=== PATIENT | female | born 1980 | race Caucasian/White ===

== ENCOUNTER 2016-09-21 04:26 | Outpatient (CLI) | payer MEDICAID ==
[~2016-09-21] VITALS: Ht 156.2 cm; Wt 66.2 kg
[~2016-09-21 04:26] MED LIST: PREN1TAB49 PO; prenatal
[2016-09-21 04:58] VITALS: BP 115/61; PULSE 75; RESP 18
[2016-09-21] MEDS ORDERED: OXYCODONE/ACETAMINOPHEN (5/325) TAB PO PRN ×2 (05:00)
[2016-09-21 06:40] LABS: ADD UMIC YES; URINE BILIRUBIN (Dip) NEGATIVE (NEGATIVE); URINE BLOOD (Dip) TRACE (NEGATIVE); URINE COLOR LT. YELLOW (YELLOW); URINE GLUCOSE (Dip) NEGATIVE (NEGATIVE); URINE KETONES (Dip) NEGATIVE (NEGATIVE); URINE LEUKOCYTE ESTERASE (Dip) 2+ (NEGATIVE); URINE NITRITE (Dip) NEGATIVE (NEGATIVE); URINE TOTAL PROTEIN (Dip) NEGATIVE (NEGATIVE); URINE UROBILINOGEN (Dip) 0.2 E.U./dL (0.1-1.0)
[2016-09-21 06:51] LABS: ADD SCAN DIFF NO
--- NOTE | 2016-09-21 06:54 | RADRPT ---
PROCEDURE: ULTRASOUND LIMITED ABDOMEN CLINICAL INDICATION: 35-year-old female with abdominal pain. TECHNIQUE: Multiple sonographic of the right upper quadrant of the abdomen were obtained. The imag es were reviewed on a PACS workstation. COMPARISON: None. FINDINGS: The pancreas is partially visualized and is otherwise normal. The liver displays normal echogenicity. The liver measures 17.7 cm in length. No evidence of intrah epatic biliary ductal dilatation is seen. The portal and hepatic veins are unremarkable. The gallbladder contains mild layering sludge. There is a small echogenic focus measuring approxima tely 3 mm without definite shadowing. This may represent a sludge ball or polyp. No pericholecystic fluid is seen. The common bile duct measures 5.4 mm and is not dilated. The right kidney displays normal echogenicity. The right kidney measures 11.6 cm in maximal length. There is mild right-sided hydronephrosis. No free fluid is seen. IMPRESSION: 1. Mild sludge within the gallbladder with nonshadowing echogenic focus which may represent a sludg e ball or polyp. 2. Mild right-sided hydronephrosis. .Isai Perkins MD, MD Date Time Electronically viewed and signed by .Isai Perkins MD, MD on 09/21/2016 06:54 .M/
[2016-09-21 07:00] LABS: BASOPHILS % 0.1 % (0.0-2.0); EOSINOPHILS # 0.1 10^3/ul (0.0-0.5); EOSINOPHILS % 0.7 % (0.0-7.0); HEMATOCRIT 31.1 % (37.0-47.0); HEMOGLOBIN 10.6 g/dl (12.0-16.0); LYMPHOCYTES # 1.1 10^3/ul (0.8-2.9); LYMPHOCYTES % 13.1 % (15.0-51.0); MEAN CORPUSCULAR HEMOGLOBIN 30.4 pg (29.0-33.0); MEAN CORPUSCULAR HGB CONC 34.1 g/dl (32.0-37.0); MEAN CORPUSCULAR VOLUME 89.1 fl (82.0-101.0); MEAN PLATELET VOLUME 10.2 fl (7.4-10.4); MONOCYTE # 0.5 10^3/ul (0.3-0.9); MONOCYTES % 6.4 % (0.0-11.0); NEUTROPHIL # 6.7 10^3/ul (1.6-7.5); NEUTROPHILS % 79.3 % (39.0-77.0); PLATELET COUNT 184 10^3/UL (140-415); RED BLOOD COUNT 3.49 10^6/ul (4.20-5.40); RED CELL DISTRIBUTION WIDTH 13.2 % (11.5-14.5); WHITE BLOOD COUNT 8.5 10^3/ul (4.8-10.8)
[2016-09-21 07:11] LABS: ALBUMIN 3.1 g/dl (3.3-4.9)
[2016-09-21 07:12] LABS: POTASSIUM 3.7 mmol/L (3.5-5.1)
[2016-09-21 07:14] LABS: BILIRUBIN,INDIRECT 0.1 mg/dl (0-1.1); BILIRUBIN,TOTAL 0.1 mg/dl (0.2-1.3); CREATININE 0.63 mg/dl (0.44-1.00); TOTAL PROTEIN 6.2 g/dl (6.1-8.1)
[2016-09-21 07:15] LABS: CALCIUM 8.2 mg/dl (8.4-10.2)
[2016-09-21 07:29] LABS: BACTERIA,URINE OCCASIONAL; URINE RBCS 0-2 /HPF (0)
--- NOTE | 2016-09-21 10:50 | QN ---
Documentation Comment 35-year-old with IUP at 26 weeks and 6 days with care with Dr. Young. Presented to triage with complaint of right upper quadrant pain started since last night. She denied any nausea, vomiting, fever, diarrhea, constipation, decreased movement, leakage of fluid, vaginal bleeding, or contractions. Patient reports soreness in the right upper quadrant in touch Her antepartum course was uncomplicated Physical examination: General appearance, alert and oriented 4. Patient appears to be in mild distress Abdomen: Soft, gravid, fundal height consistent with gestational age. Mild tenderness in the right upper quadrant noted. No rebound tenderness, no guarding, no rigidity, no evidence of acute abdomen, no CVA tenderness NST: Category 1, appropriate for gestational age No contraction on the monitor Hematology - 72 Hrs Test 09/21/16 06:15 White Blood Count 8.510^3/ul (4.8-10.8) Red Blood Count 3.4910^6/ul (4.20-5.40) L Hemoglobin 10.6g/dl (12.0-16.0) L Hematocrit 31.1% (37.0-47.0) L Mean Corpuscular Volume 89.1fl (82.0-101.0) Mean Corpuscular Hemoglobin 30.4pg (29.0-33.0) Mean Corpuscular Hemoglobin Concent 34.1g/dl (32.0-37.0) Red Cell Distribution Width 13.2% (11.5-14.5) Platelet Count 27924^3/UL (140-415) Mean Platelet Volume 10.2fl (7.4-10.4) Neutrophils % 79.3% (39.0-77.0) H Lymphocytes % 13.1% (15.0-51.0) L Monocytes % 6.4% (0.0-11.0) Eosinophils % 0.7% (0.0-7.0) Basophils % 0.1% (0.0-2.0) Nucleated Red Blood Cells % 0.0/100WBC (0.0-0.0) Neutrophils # 6.710^3/ul (1.6-7.5) Lymphocytes # 1.110^3/ul (0.8-2.9) Monocytes # 0.510^3/ul (0.3-0.9) Eosinophils # 0.110^3/ul (0.0-0.5) Basophils # 0.010^3/ul (0.0-0.1) Nucleated Red Blood Cells # 0.010^3/ul (0.0-0.0) Chemistry Test 09/21/16 06:15 Sodium Level 134mmol/L (135-144) L Potassium Level 3.7mmol/L (3.5-5.1) Chloride Level 108mmol/L (97-110) Carbon Dioxide Level 22mmol/L (21-31) Anion Gap 8 (8-16) Blood Urea Nitrogen 11mg/dl (7-20) Creatinine 0.63mg/dl (0.44-1.00) Glucose Level 97mg/dl (70-220) Calcium Level 8.2mg/dl (8.4-10.2) L Total Bilirubin 0.1mg/dl (0.2-1.3) L Direct Bilirubin 0.00mg/dl (0.00-0.20) Indirect Bilirubin 0.1mg/dl (0-1.1) Aspartate Amino Transf (AST/SGOT) 16IU/L (15-46) Alanine Aminotransferase (ALT/SGPT) 15IU/L (13-69) Alkaline Phosphatase 90IU/L (42-121) Total Protein 6.2g/dl (6.1-8.1) Albumin 3.1g/dl (3.3-4.9) L Globulin 3.10g/dl (1.3-3.2) Albumin/Globulin Ratio 1.00 Amylase Level 134U/L (11-123) H Lipase 85U/L (23-300) PROCEDURE: ULTRASOUND LIMITED ABDOMEN CLINICAL INDICATION: 35-year-old female with abdominal pain. TECHNIQUE: Multiple sonographic of the right upper quadrant of the abdomen were obtained. The images were reviewed on a PACS workstation. COMPARISON: None. FINDINGS: The pancreas is partially visualized and is otherwise normal. The liver displays normal echogenicity. The liver measures 17.7 cm in length. No evidence of intrahepatic biliary ductal dilatation is seen. The portal and hepatic veins are unremarkable. The gallbladder contains mild layering sludge. There is a small echogenic focus measuring approximately 3 mm without definite shadowing. This may represent a sludge ball or polyp. No pericholecystic fluid is seen. The common bile duct measures 5.4 mm and is not dilated. The right kidney displays normal echogenicity. The right kidney measures 11.6 cm in maximal length. There is mild right-sided hydronephrosis. No free fluid is seen. IMPRESSION: 1. Mild sludge within the gallbladder with nonshadowing echogenic focus which may represent a sludge ball or polyp. 2. Mild right-sided hydronephrosis. Assessment: IUP at 26 weeks and 6 days Right upper quadrant pain, ultrasound consistent with biliary sludge. No evidence of cholecystitis or obstruction Mild right pyelectasis due to , asymptomatic Symptoms improved Labs are normal Plan: Dietary advice was given to the patient Prescription for Zofran and [place] provided as needed Advised to avoid of taking greasy meals Precaution was given to return to L&D if she has any leaking of fluid, bleeding , contraction, fever, chills, decreased movement or worsening of pain or any other concerns. Next Patient verbalized understanding. Patient was advised to have a follow-up with her primary OB in 3 days after discharge or sooner as needed any other symptoms. PAUL POSEY MD Sep 21, 2016 10:50
== END 2016-09-21 09:37 | disposition home or self-care (01) ==
LOC: OBT 04:26 → L-D 04:27 → OBT 09:37
PROVIDERS: ATTEND Obstetrics & Gynecology
DX: O26.892 Other specified pregnancy related conditions, second trimester (principal); R10.11 Right upper quadrant pain; Z3A.26 26 weeks gestation of pregnancy
CPT/HCPCS: 76705; 80053; 81001; 81003; 82150; 83690; 85025; Z7500; G0463

== ENCOUNTER 2016-12-24 08:18 | Inpatient (IN) | payer MEDICAID ==
[~2016-12-24] VITALS: Ht 152.4 cm; Wt 64.5 kg
[2016-12-24 08:37] VITALS: BP 136/79; RESP 20
[2016-12-24 08:39] VITALS: Ht 152.4 cm; Wt 64.5 kg
[2016-12-24] MEDS ORDERED: BUTORPHANOL 2 MG INJ IV PRN ×2 (09:00)
[2016-12-24] MEDS ORDERED: OXYTOCIN 30 UNITS/LR 500 ML IV SCH ×3 (09:00)
[2016-12-24] MEDS ORDERED: LIDOCAINE 1% (MPF) 30 ML INJ INJ PRN (09:00)
[2016-12-24] MEDS ORDERED: IBUPROFEN 600 MG TAB PO PRN (09:00)
[2016-12-24] MEDS ORDERED: OXYTOCIN 30 UNITS/LR 500 ML IV PRN ×2 (09:00→16:00)
[2016-12-24] MEDS ORDERED: MISOPROSTOL 200 MCG TAB PR PRN ×2 (09:00→16:00)
[2016-12-24] MEDS ORDERED: METHYLERGONOVINE 0.2 MG INJ IM PRN ×2 (09:00→16:00)
[2016-12-24] MEDS ORDERED: CARBOPROST 250 MCG INJ IM PRN ×2 (09:00→16:00)
[2016-12-24] MEDS ORDERED: LACTATED RINGER'S 1,000 ML IV PRN (09:10)
--- NOTE | 2016-12-24 09:12 | TRIAGE ---
OB Triage Datetime Report Generated by CPN: 12/24/2016 09:11 Datetime: 12/24/2016 08:50 Vaginal Exam Dilatation (cms): 3.0 Effacement (%): 100 Station: -3 Exam By: LR RN Vaginal Bleeding: None Cervix, Consistency: Moderate Cervix, Position: Anterior Presentation 'A': Cephalic Lie 'A': Longitudinal Datetime: 12/24/2016 08:42 Maternal Assessment Level of Consciousness: Fully Conscious Headache: Denies Blurred Vision: No Nausea/Vomiting: Denies RUQ Epigastric Pain: Denies Facial Edema: None Labor Evaluation Frequency: 5 Monitor Mode: External Duration (sec)2399: 90 Quality: Moderate Resting Tone Robeline: Relaxed Heart Rate FHR Baseline Rate: 135 Monitor Mode: External US FHR Baseline Changes: No Baseline Change Variability: Moderate 6-25 bpm Accelerations: 10X10 Decelerations: Early Category: Category I Pain Assessment Pain Scale: 3 Pain Presence: Intermittent Pain Type: Cramping; Contraction Pain Location: Abdomen Membrane Status: Intact Datetime: 12/24/2016 08:20 Time of Arrival: 12/24/2016 08:30 EGA: 40.2 Arrived By: Ambulatory Arrived From: Home Chief Complaint: UC'A SINCE 0700 Movement: Present Time Contractions Began: 12/24/2016 07:00 Contractions: 15 PER PT Rupture of Membranes: Denies Vaginal Bleeding: None Vaginal Discharge: Present Recent Sexual Intercouse: Denies Abdominal Trauma: Not Applicable Patient Complaints: Contractions Time Provider Notified: 12/24/2016 08:55 Provider Notified: LABORIST ESVIN Szymanski ESHAGHIAN Initial Plan: NST REACTIVE /VE Datetime: 09/21/2016 08:56 Stage of : OB Triage Datetime: 09/21/2016 08:26 Labor Evaluation Frequency: 0 Resting Tone Robeline: Relaxed Heart Rate FHR Baseline Rate: 125 Monitor Mode: External US Variability: Moderate 6-25 bpm Accelerations: 10X10 Decelerations: None Category: Category I Pain Assessment Pain Scale: 0 Pain Presence: None/Denies Pain Type: N/A Pain Goal: 3 Pain Relief Measures: Comfort Measures Datetime: 09/21/2016 07:25 Labor Evaluation Frequency: 0 Monitor Mode: External Resting Tone Robeline: Relaxed Heart Rate FHR Baseline Rate: 135 Monitor Mode: External US Variability: Moderate 6-25 bpm Accelerations: 10X10 Decelerations: None Category: Category I Pain Assessment Pain Scale: 0 Pain Presence: None/Denies Pain Type: N/A Pain Location: Abdomen Pain Goal: 3 Pain Relief Measures: Comfort Measures Datetime: 09/21/2016 07:03 Monitor Mode: External Pattern: Normal: <= 5 Contractions in 10 Minutes Resting Tone Robeline: Relaxed Heart Rate FHR Baseline Rate: 140 Monitor Mode: External US Variability: Moderate 6-25 bpm Accelerations: 10X10 Decelerations: Variable Category: Category II Datetime: 09/21/2016 06:44 Monitor Mode: External Monitor Mode: External US Datetime: 09/21/2016 06:24 Membrane Status: Intact Datetime: 09/21/2016 06:00 Monitor Mode: External Resting Tone Robeline: Relaxed Heart Rate FHR Baseline Rate: 135 Monitor Mode: External US FHR Baseline Changes: No Baseline Change Variability: Moderate 6-25 bpm Accelerations: 10X10 Datetime: 09/21/2016 05:02 Stage of : OB Triage Monitor Mode: External Pattern: Normal: <= 5 Contractions in 10 Minutes Resting Tone Robeline: Relaxed Heart Rate FHR Baseline Rate: 140 Monitor Mode: External US FHR Baseline Changes: No Baseline Change Variability: Moderate 6-25 bpm Accelerations: 10X10 Decelerations: None Category: Category I Datetime: 09/21/2016 04:52 Time of Arrival: 09/21/2016 04:20 EGA: 26.6 Arrived By: Wheelchair Arrived From: Home Chief Complaint: G%p$ w/ c/o RUQ pain since 2299 Movement: Present Contractions: Denies/Absent Rupture of Membranes: Denies Vaginal Bleeding: None Vaginal Discharge: Denies Recent Sexual Intercouse: Denies Abdominal Trauma: Not Applicable Patient Complaints: Nausea; Epigastric Pain Time Provider Notified: 09/21/2016 05:02 Provider Notified: ESHAGHIAN Initial Plan: CBC,CMP,AMYLASE,LIPASE,U/S Datetime: 09/21/2016 04:39 Maternal Assessment Level of Consciousness: Fully Conscious Headache: Denies Blurred Vision: No Respiratory Effort: Unlabored Nausea/Vomiting: Present RUQ Epigastric Pain: Denies Facial Edema: None Labor Evaluation Frequency: PLACED Monitor Mode: External Resting Tone Robeline: Relaxed Monitor Mode: External US Comments: FHR 140 Pain Assessment Pain Scale: 7 Pain Presence: Constant Pain Type: Sharp Pain Location: Abdomen
--- NOTE | 2016-12-24 09:36 | RADRPT ---
PROCEDURE: US OB. CLINICAL INDICATION: Size and dates TECHNIQUE: Multiple sonographic images of the pelvis and gravid uterus were obtained. The images were reviewed on a PACS workstation. COMPARISON: No prior studies are available for comparison. FINDINGS: There is a single viable intrauterine gestation. Cardiac activity is present with 135 beats per min jimenez. There is a vertex presentation. The placenta is anterior. There is no evidence for an abruption or placenta previa. There is a normal amount of amniotic fluid with an JULIO = 12.5 cm. Measurements were made in order to determine age. The results are as follows: BPD =9.0 cm HC =32.9 cm AC =36.8 cm FL =7.5 cm Estimated gestational age of approximately 38 weeks and 1 day based on ultrasound measurements. Clinical age: 40 weeks and 2 days. The estimated date of delivery is 01/06/2017, based on ultrasound measurements. The EFW = 3727 g, 55%, based on LMP age. RPTAT: AA IMPRESSION: Single viable intrauterine gestation of approximately 38 weeks and 1 day based on ultrasound measur ements. Smaller than clinical age by 2 weeks. .Peter Duong MD, Date Time Electronically viewed and signed by .Peter Duong MD, MD on 12/24/2016 09:36 .S/
[2016-12-24] MEDS: LACTATED RINGER'S 1,000 ML IV SCH ×2 (09:55→13:22)
[2016-12-24] MEDS ORDERED: FENTAnyl 2MCG/ML-ROPIV 0.2% 100 ML ONE (10:12)
[2016-12-24 10:13] LABS: ADD SCAN DIFF NO
[2016-12-24 10:14] LABS: BASOPHILS % 0.1 % (0.0-2.0); EOSINOPHILS % 0.5 % (0.0-7.0); HEMATOCRIT 32.9 % (37.0-47.0); HEMOGLOBIN 11.2 g/dl (12.0-16.0); LYMPHOCYTES # 1.3 10^3/ul (0.8-2.9); LYMPHOCYTES % 15.4 % (15.0-51.0); MEAN CORPUSCULAR HEMOGLOBIN 28.4 pg (29.0-33.0); MEAN CORPUSCULAR VOLUME 83.3 fl (82.0-101.0); MEAN PLATELET VOLUME 10.9 fl (7.4-10.4); MONOCYTE # 0.4 10^3/ul (0.3-0.9); MONOCYTES % 5.1 % (0.0-11.0); NEUTROPHIL # 6.4 10^3/ul (1.6-7.5); NEUTROPHILS % 78.7 % (39.0-77.0); PLATELET COUNT 195 10^3/UL (140-415); RED BLOOD COUNT 3.95 10^6/ul (4.20-5.40); RED CELL DISTRIBUTION WIDTH 13.2 % (11.5-14.5); WHITE BLOOD COUNT 8.2 10^3/ul (4.8-10.8)
--- NOTE | 2016-12-24 10:16 | HP ---
Date/Time of Note Date/Time of Note DATE: 12/24/16 TIME: 10:14 OB - History Hx of Present Free Text/Dictation 40+wks GA in labor : 5 Para: 4 Care: Good Care Obstetrical Complications: None Medical Complications: None Past Family/Social History * Past Medical, Surgical, Family and Obstetric Histories reviewed from chart. OB Admission Exam Vital Signs Vital Signs Vital Signs Date Time Temp Pulse Resp B/P Pulse Ox O2 Delivery O2 Flow Rate FiO2 12/24/16 08:37 98.3 20 136/79 Room Air Physical Exam Abdomen: WNL Extremities: Normal Cervical Dilatation: 3cm Effacement: 75% Station: -1 Membranes: Intact Heart Rate: 140's Accelerations: Accelerations Present Decelerations: No Decelerations Varibility: Moderate Contractions on Admission: < 5 Minutes Apart OB Assessment/Plan Reason for admission: induction of labor Induction Method: per Pitocin Protocol JOSE MCALLISTER M.D. Dec 24, 2016 10:16
[2016-12-24 10:33] LABS: INR 0.89; PT RATIO 0.9
[2016-12-24 10:34] LABS: PARTIAL THROMBOPLASTIN TIME 26.4 Sec (25.0-35.0)
[2016-12-24] MEDS ORDERED: LACTATED RINGER'S 1,000 ML IV* SCH (15:37)
--- NOTE | 2016-12-24 15:37 | LDN ---
Date/Time of Note Date/Time of Note DATE: 12/24/16 TIME: 15:35 Delivery Summary Weeks of Gestation 40 Placenta Delivered: Spontaneously Meconium: none Episiotomy: No Estimated blood loss: 100 Sponge & Needle done & correct: Yes All needle counts correct: Yes Any foreign bodies felt in the: No Problems: Delivery Information Sex Sex: female Apgars 1 Minute: 9 5 Minute: 9 Suctioning Nose & mouth suctioned at [place]: No Delee suction performed: No Umbilical Cord Umbilical cord with: 3 Vessels Cord presentations: no nuchal cord Cord Blood was obtained: Yes AGUSTIN GOLDBERG MD Dec 24, 2016 15:36
[2016-12-24] MEDS ORDERED: BENZOCAINE 20% 56 ML SPRAY TOP PRN (16:00)
[2016-12-24] MEDS ORDERED: DIBUCAINE 1% 30 GM OINT PR PRN (16:00)
[2016-12-24] MEDS ORDERED: ZOLPIDEM 5 MG TAB PO PRN (16:00)
[2016-12-24] MEDS ORDERED: LANOLIN 7 GM TUBE TOP PRN (16:00)
[2016-12-24] MEDS ORDERED: OXYCODONE/ASPIRIN (4.88/325) TAB PO PRN ×2 (16:00)
[2016-12-24] MEDS ORDERED: DIPHENHYDRAMINE 25 MG CAP PO PRN (16:00)
[2016-12-24] MEDS ORDERED: ACETAMINOPHEN 325 MG TAB PO PRN (16:00)
[2016-12-24] MEDS ORDERED: ONDANSETRON 4 MG INJ IV PRN (16:00)
[2016-12-24] MEDS ORDERED: WITCH HAZEL/GLYCERIN PAD PR PRN (16:00)
[2016-12-24] MEDS ORDERED: SENNA/DOCUSATE NA (8.6MG/50MG) TAB PO PRN (16:00)
[2016-12-24 17:00] VITALS: BP 121/63; PULSE 63; RESP 18
[2016-12-24 17:29] VITALS: BP 119/64; PULSE 63; RESP 18
[2016-12-24] MEDS: IBUPROFEN 600 MG TAB PO SCH ×2 (17:41→23:35)
[2016-12-24] MEDS ORDERED: NALOXONE (0.4 MG/ML) INJ IV PRN (19:00)
[2016-12-24] MEDS ORDERED: FENTAnyl 2MCG/ML-ROPIV 0.2% 100 ML BAG EPI SCH (19:00)
[2016-12-24 19:30] VITALS: BP 127/69; PULSE 69; RESP 19
[2016-12-24] MEDS: MAGNESIUM HYDROXIDE 30ML CUP PO SCH (21:20)
[2016-12-24] MEDS: SENNA/DOCUSATE NA (8.6MG/50MG) TAB PO SCH (21:20)
[2016-12-25] VITALS: BP 118/59; PULSE 83; RESP 19
[2016-12-25 04:00] VITALS: BP 115/63; PULSE 68; RESP 19
[2016-12-25] MEDS: IBUPROFEN 600 MG TAB PO SCH ×4 (05:37→23:26)
[2016-12-25 07:38] LABS: ADD SCAN DIFF NO
[2016-12-25 07:48] LABS: BASOPHILS % 0.2 % (0.0-2.0); EOSINOPHILS # 0.1 10^3/ul (0.0-0.5); EOSINOPHILS % 0.5 % (0.0-7.0); HEMOGLOBIN 10.3 g/dl (12.0-16.0); LYMPHOCYTES # 1.6 10^3/ul (0.8-2.9); LYMPHOCYTES % 16.1 % (15.0-51.0); MEAN CORPUSCULAR HEMOGLOBIN 28.2 pg (29.0-33.0); MEAN CORPUSCULAR HGB CONC 33.2 g/dl (32.0-37.0); MEAN CORPUSCULAR VOLUME 84.9 fl (82.0-101.0); MEAN PLATELET VOLUME 10.9 fl (7.4-10.4); MONOCYTE # 0.7 10^3/ul (0.3-0.9); MONOCYTES % 7.2 % (0.0-11.0); NEUTROPHIL # 7.7 10^3/ul (1.6-7.5); NEUTROPHILS % 75.7 % (39.0-77.0); PLATELET COUNT 179 10^3/UL (140-415); RED BLOOD COUNT 3.65 10^6/ul (4.20-5.40); RED CELL DISTRIBUTION WIDTH 13.2 % (11.5-14.5); WHITE BLOOD COUNT 10.2 10^3/ul (4.8-10.8)
[2016-12-25 08:30] VITALS: BP 115/60; PULSE 66; RESP 18
[2016-12-25] MEDS: MAGNESIUM HYDROXIDE 30ML CUP PO SCH ×2 (10:29→20:58)
[2016-12-25] MEDS: SENNA/DOCUSATE NA (8.6MG/50MG) TAB PO SCH ×2 (10:29→20:58)
--- NOTE | 2016-12-25 13:49 | QN ---
Documentation Comment PPD #1 s/p Feels well and w/o a problem. T= 98.0 BP 115/60 Fundus firm. Lochia minimal. Ext NT, no edema. WBC 10.2 Hgb 10.3 Plts 179K. P: D/C tomorrow. Cont. care. GISELA YEH MD Dec 25, 2016 13:48
[2016-12-25 19:35] VITALS: BP 116/62; PULSE 68; RESP 19
--- NOTE | 2016-12-26 01:20 | PD.PPDC ---
CHAMBER MAGISTRATE Discharge Instruction Condition Patient Condition: Fair Diet Diet: Resume Regular Diet Activity/Restrictions Restrictions: No Driving Minimize Stair-climbing No Sexual Activity Nothing in the Vagina No Reed No Tampons, douche Follow-up Follow-up with Physician: 3, Week/Weeks Return to clinic for [employer]PER[employer]OR Instructions: Fever greater than 101 Chills Worsening abdominal pain Excessive Vaginal Bleeding More than 2 pads per hour Unable to tolerate diet OB Instructions: Breast Tenderness Depression Blurried Vision Headache Surgical Instructions: Incisional Drainage Incisional Redness AGUSTIN GOLDBERG MD Dec 26, 2016 01:20
--- NOTE | 2016-12-26 01:23 | DS ---
Date/Time of Note Date/Time of Note DATE: 12/26/16 TIME: 01:21 Obstetrical Discharge Record Final Diagnosis Final Diagnosis: Term delivered Vaginal Delivery Obstetrical Delivery: Spontaneous Complications Augmentation: No Induction: No Rupture of Membranes: No Condition on Discharge Physical Assessment Voiding: Yes Bowel Movement: Yes Breast: Soft, non-tender, Filling Fundus: Firm Calf Tenderness: No Patient Condition: AGUSTIN Henriquez MD Dec 26, 2016 01:23
[2016-12-26 03:40] VITALS: BP 110/68; PULSE 69; RESP 19
[2016-12-26] MEDS: IBUPROFEN 600 MG TAB PO SCH ×2 (05:30→12:09)
[2016-12-26 08:21] VITALS: BP 116/65; PULSE 63; RESP 20
[2016-12-26] MEDS: MAGNESIUM HYDROXIDE 30ML CUP PO SCH (09:00)
[2016-12-26] MEDS: SENNA/DOCUSATE NA (8.6MG/50MG) TAB PO SCH (09:00)
== END 2016-12-26 13:30 | disposition home or self-care (01) | DRG 775 ==
LOC: L-D 08:18 → OBT 08:18 → L-D 09:05 → PP1 16:48
PROVIDERS: ADMIT Obstetrics & Gynecology; ATTEND Obstetrics & Gynecology
PROC: 10E0XZZ Delivery of Products of Conception, External Approach (ICD-10-PCS; principal; 2016-12-24)
DX: O80 Encounter for full-term uncomplicated delivery (principal); Z37.0 Single live birth; Z3A.40 40 weeks gestation of pregnancy
CPT/HCPCS: 62319; 76816; 85025; 85610; 85730; 86592; 86850; 86900; 86901; G0463; J2590; J3010; J7120

== ENCOUNTER 2017-06-19 03:31 | Emergency (ER) | END 2017-06-19 07:56 | disposition home or self-care (01) ==